=== PATIENT | male | born 1960 | race Caucasian/White ===

== ENCOUNTER 2022-04-24 15:18 | Emergency (ER) | payer OTHER ==
[2022-04-24] MEDS ORDERED: Sodium Chloride 0.9% 10 ML Syringe FLUSH PRN (15:30)
[2022-04-24 16:53] LABS: CHLORIDE,CL 105 mmol/L (98-107); ESTIMATED GFR 69 mL/min (>=60); SODIUM,NA 142 mmol/L (136-145)
[2022-04-24 17:08] VITALS: BP 143/88; PULSE 96
== END 2022-04-24 17:10 | disposition home or self-care (01) ==
LOC: DL.ED 15:18
DX: R20.2 Paresthesia of skin (principal); R20.0 Anesthesia of skin
CPT/HCPCS: 36415; 70450; 80053; 82607; 82746; 83735; 85025; 93005; 93010; 99284; J3490

== ENCOUNTER 2024-02-28 07:22 | Day surgery (SDC) | payer MEDICARE, OTHER ==
[~2024-02-28 07:22] MED LIST: Midazolam 1 MG/ML 2 ML SDV IV ONE; Midazolam 1 MG/ML 2 ML SDV ONE; fentaNYL 100 MCG/2 ML SDV IV ONE; fentaNYL 100 MCG/2 ML SDV ONE
[2024-02-28] MEDS: Dextrose 5%-0.45% NaCl 1,000 ML IV SCH (07:46)
[2024-02-28] MEDS: fentaNYL 100 MCG/2 ML SDV IV ONE ×2 (08:50→08:51)
[2024-02-28] MEDS: Midazolam 1 MG/ML 2 ML SDV IV ONE ×6 (08:51→08:57)
[2024-02-28 10:15] VITALS: BP 93/47; PULSE 66
== END 2024-02-28 10:36 | disposition home or self-care (01) ==
LOC: DL.ENDO 07:22
PROVIDERS: ATTEND Internal Medicine Gastroenterology
DX: Z12.11 Encounter for screening for malignant neoplasm of colon (principal); D12.3 Benign neoplasm of transverse colon; I10 Essential (primary) hypertension; E78.5 Hyperlipidemia, unspecified
CPT/HCPCS: 45385; 88305; J2250; J3010; J7799